=== PATIENT | female | born 1930 ===

== ENCOUNTER 2017-03-09 20:28 | Observation (INO) | payer MEDICARE, OTHER ==
[2017-03-09 20:39] VITALS: BMI 25.6
--- NOTE | 2017-03-09 21:57 | ED PDOC ---
Arrival/HPI <Drew Shukla - Last Filed: 03/10/17 00:05> - General Historian: Patient, Skilled Nursing <Birgit Vasquez - Last Filed: 03/10/17 01:32> - General Chief Complaint: Upper Extremity Problem/Injury Time Seen by Provider: 03/09/17 21:05 - History of Present Illness Narrative History of Present Illness (Text): 03/09/17 21:55 86YR old female presents today sent in from group home for left 5th finger fracture. Pt unable to explain what happened. denies trauma or injury. pt denies any complaints. pt with hx of dementia, does not know where she is. ( Birgit Vasquez) Past Medical History - Provider Review Nursing Documentation Reviewed: Yes - Travel History Have you recently traveled outside [place] w/in the past 3 mons?: No - Infectious Disease Hx of Infectious Diseases: None - Reproductive Menopause: Yes - Neurological Hx Alzheimer's Disease: Yes - Musculoskeletal/Rheumatological Hx Osteoporosis: Yes - Gastrointestinal Hx Gastroesophageal Reflux: Yes - Psychiatric Hx Depression: Yes Hx Substance Use: No Other/Comment: insomia - Surgical History Other/Comment: hernia surgery - Anesthesia Hx Anesthesia: No Hx Anesthesia Reactions: No Hx Malignant Hyperthermia: No <Birgit Vasquez - Last Filed: 03/10/17 01:32> Family/Social History - Physician Review Nursing Documentation Reviewed: Yes Family/Social History: Unknown Family HX Smoking Status: Never Smoked Hx Alcohol Use: No Hx Substance Use: No <Birgit Vasquez - Last Filed: 03/10/17 01:32> Allergies/Home Meds <Drew Shukla - Last Filed: 03/10/17 00:05> <Birgit Vasquez - Last Filed: 03/10/17 01:32> Allergies/Adverse Reactions: Allergies No Known Allergies Allergy (Verified 03/09/17 20:34) Home Medications: Home Meds Medication Instructions Recorded Confirmed Divalproex [Depakote DR] 125 mg PO DAILY 03/09/17 03/09/17 Donepezil [Aricept] 10 g PO HS 03/09/17 03/09/17 Ergocalciferol (Vitamin D2) 1 tab PO QWK 03/09/17 03/09/17 [Vitamin D2] Famotidine [Pepcid] 1 tab PO HS 03/09/17 03/09/17 Multivitamin [Daily Vitamin 1 tab PO DAILY 03/09/17 03/09/17 Formula] Peg 400/Hypromellose/Glycerin 1 drop BOTHEYES BID 03/09/17 03/09/17 [Artificial Tears Drops] traZODone [Desyrel] 50 mg PO DAILY 03/09/17 03/09/17 Review of Systems - Review of Systems Systems not reviewed;Unavailable: Dementia Respiratory: absent: Cough Gastrointestinal: absent: Abdominal Pain Genitourinary Female: absent: Dysuria, Frequency Musculoskeletal: absent: Arthralgias, Back Pain Neurological: absent: Headache <Birgit Vasquez - Last Filed: 03/10/17 01:32> Physical Exam Vital Signs Reviewed: Yes Temperature: Afebrile Blood Pressure: Hypertensive Pulse: Regular Respiratory Rate: Normal Appearance: Positive for: Well-Appearing, Non-Toxic, Comfortable Pain Distress: None Mental Status: Positive for: Alert and Oriented X 3 - Systems Exam Head: Present: Atraumatic Pupils: Present: PERRL Mouth: Present: Moist Mucous Membranes Neck: Present: Normal Range of Motion. No: MIDLINE TENDERNESS, Paraspinal Tenderness Respiratory/Chest: Present: Clear to Auscultation Cardiovascular: Present: Regular Rate and Rhythm Abdomen: No: Tenderness, Rebound, Guarding Back: Present: Normal Inspection. No: Midline Tenderness, Paraspinal Tenderness Upper Extremity: Present: NORMAL PULSES, Swelling, Neurovascularly Intact, Capillary Refill < 2s. No: Normal ROM, Tenderness (left hand; + ecchymosis and edema noted to dorsal aspect of left hand and left 5th finger; non tender. no wrist tenderness. ), Erythema, Deformity Neurological: Present: GCS=15 Skin: Present: Warm, Dry Psychiatric: Present: Alert <Birgit Vasquez - Last Filed: 03/10/17 01:32> Vital Signs Temp Pulse Resp BP Pulse Ox 03/10/17 00:57 59 L 18 166/66 H 98 03/09/17 22:36 73 18 154/65 H 99 03/09/17 20:36 98.0 F 65 18 173/63 H 99 Medical Decision Making <Drew Shukla - Last Filed: 03/10/17 00:05> <Birgit Vasquez - Last Filed: 03/10/17 01:32> ED Course and Treatment: 03/09/17 21:57 86yr old female with hx of dementia. confused. with left hand injury. unsure of how it occurred. no group home history to confirm how hand injury occurred. cbc: wnl cmp: glucose; 119 BUN; 27/ cr:0.7 trop wnl ekg; NSR at 70 bpm normal axis normal intervals no ST elevations CXR: wnl xray left 5th finger; + angulated displaced fx; pt placed into finger splint. Urinalysis pending case discussed with dr. denton; will admit observational status to med/surg for finger fracture, dehydration; will consult dr. tadeo (hand specialist) NS given IV. impression; dehydration, finger fracture observational status to med/surg with hand consult 03/10/17 01:29 (Birgit Vasquez) - Lab Interpretations Lab Results: 03/09/17 21:50 03/09/17 21:50 Lab Results 03/09/17 21:50: WBC 6.9, RBC 4.02, Hgb 12.4, Hct 37.5, MCV 93.3, MCH 30.8, MCHC 33.1, RDW 12.4, Plt Count 245, MPV 9.5, Gran % 55.4, Lymph % (Auto) 34.6, Ramsey % (Auto) 8.4 H, Eos % (Auto) 1.3 L, Baso % (Auto) 0.3, Gran # 3.84, Lymph # 2.4 , Ramsey # 0.6, Eos # 0.1, Baso # 0.02 03/09/17 21:50: Sodium 139, Potassium 4.2, Chloride 102, Carbon Dioxide 28, Anion Gap 13, BUN 27 H, Creatinine 0.7, Est GFR ( Amer) > 60, Est GFR ( Non-Af Amer) > 60, Random Glucose 119 H, Calcium 9.3, Total Bilirubin 0.4, AST 61 H, ALT 65 H, Alkaline Phosphatase 233 H, Lactate Dehydrogenase 477, Total Creatine Kinase 36, Troponin I < 0.01, Total Protein 6.6, Albumin 3.6, Globulin 3.0, Albumin/Globulin Ratio 1.2 - RAD Interpretation Radiology Orders: 03/09/17 21:06 HEAD W/O CONTRAST [CT] Stat 03/09/17 21:13 HAND LEFT 3 VIEWS ROUTINE [RAD] Stat 03/09/17 21:54 CHEST PORTABLE [RAD] Stat - Medication Orders Current Medication Orders: Sodium Chloride (Sodium Chloride 0.9%) 500 mls @ 50 mls/hr IV .Q10H MIGUEL - PA / [employer] / Resident Statement / has reviewed & agrees with the documentation as recorded. / has examined the patient and agrees with the treatment plan. <Drew Shukla - Last Filed: 03/10/17 00:05> Disposition/Present on Arrival <Drew Shukla - Last Filed: 03/10/17 00:05> - Present on Arrival Any Indicators Present on Arrival: No History of DVT/PE: No History of Uncontrolled Diabetes: No Urinary Catheter: No History of Decub. Ulcer: No History Surgical Site Infection Following: None - Disposition Have Diagnosis and Disposition been Completed?: Yes Disposition Time: 01:31 Patient Plan: Observation <Birgit Vasquez - Last Filed: 03/10/17 01:32> - Disposition Diagnosis: Dehydration, Finger fracture Disposition: HOSPITALIZED Condition: FAIR Referrals: Lora Denton MD [Primary Care Provider] - Follow up with primary Forms: [employer] (Danish)
[2017-03-09 22:09] LABS: ALB/GLOB RATIO 1.2 (1.1-1.8); ALBUMIN 3.6 g/dL (3.0-4.8); ALT/SGPT 65 U/L (7-56); AST/SGOT 61 U/L (15-39); BLOOD UREA NITROGEN 27 mg/dL (7-21); CALCIUM 9.3 mg/dL (8.4-10.5); GFR AFRICAN-AMERICAN > 60; GFR NON-AFRICAN AMERICAN > 60
[2017-03-09 22:11] LABS: BASO # 0.02 K/mm3 (0.0-2.0); BASO % 0.3 % (0.0-3.0); EOS # 0.1 (0.0-0.7); EOS % 1.3 % (1.5-5.0); GRAN # 3.84 (1.4-6.5); GRAN % 55.4 % (50.0-68.0); HEMOGLOBIN 12.4 g/dL (12.0-16.0); LYMPH # 2.4 (1.2-3.4); LYMPH % 34.6 % (22.0-35.0); MEAN CELL VOLUME 93.3 fl (80.0-105.0); MEAN CORPUSCULAR HEMOGLOBIN 30.8 pg (25.0-35.0); MEAN CORPUSCULAR HGB CONC 33.1 g/dl (31.0-37.0); MEAN PLATELET VOLUME 9.5 fl (7.0-11.0); MONO # 0.6 (0.1-0.6); MONO % 8.4 % (1.0-6.0); PLATELET COUNT 245 10^3/uL (120.0-450.0); RBC 4.02 10^6/uL (3.5-6.1); RED CELL DISTRIBUTION WIDTH 12.4 % (11.5-14.5); WHITE BLOOD COUNT 6.9 10^3/ul (4.5-11.0)
[2017-03-09 22:29] LABS: TROPONIN I < 0.01 ng/mL
--- NOTE | 2017-03-09 23:16 | CT ---
EXAM: CT Head Without Intravenous Contrast CLINICAL HISTORY: 86 years old, female; Injury or trauma; Fall; Initial encounter; Fracture, stress; Injury details: Fracture in hand not in head. Patient confused; Additional info: Fall, TECHNIQUE: Axial computed tomography images of the head/brain without intravenous contrast. All CT scans at this facility use one or more dose reduction techniques, viz.: automated exposure control; ma/kV adjustment per patient size (including targeted exams where dose is matched to indication; i.e. head); or iterative reconstruction technique. COMPARISON: No relevant prior studies available. FINDINGS: Brain: No acute intracranial hemorrhage. Age-appropriate periventricular white matter disease. No edema. Ventricles: Age-appropriate ventriculomegaly. Bones: No acute displaced fracture. Sinuses: Unremarkable as visualized. No acute sinusitis. Mastoid air cells: Unremarkable as visualized. No mastoid effusion. IMPRESSION: No acute intracranial hemorrhage, or suspicious mass effect.
[2017-03-10 01:01] VITALS: O2SAT 98
[2017-03-10] MEDS: Sodium Chloride 0.9% 500 ML IV SCH ×2 (01:10→04:06)
--- NOTE | 2017-03-10 07:52 | RAD ---
PROCEDURE: Left Hand Radiographs. HISTORY: fall COMPARISON: None. FINDINGS: BONES: Acute fracture proximal phalanx left 5th digit. Evidence of old, healed distal radial and ulnar styloid fractures. JOINTS: Osteoarthritic changes are diffuse and moderate. SOFT TISSUES: Normal. OTHER FINDINGS: None. IMPRESSION: Acute fracture proximal phalanx left 5th digit. No preliminary report provided by emergency department personnel.
--- NOTE | 2017-03-10 07:54 | RAD ---
HISTORY: FALL COMPARISON: No prior. FINDINGS: LUNGS: No active pulmonary disease. Interstitial lung disease uncertain acuity, significance. PLEURA: No significant pleural effusion identified, no pneumothorax apparent. CARDIOVASCULAR: No radiographic findings to suggest acute or significant cardiovascular disease. OSSEOUS STRUCTURES: No significant abnormalities. VISUALIZED UPPER ABDOMEN: Normal. OTHER FINDINGS: None. IMPRESSION: No active disease.
[2017-03-10 09:46] LABS: URINE BILIRUBIN NEGATIVE (NEGATIVE); URINE BLOOD SMALL (NEGATIVE); URINE GLUCOSE (UA) NEGATIVE (NEGATIVE); URINE LEUKOCYTE ESTERASE NEGATIVE Leu/uL (NEGATIVE); URINE NITRATE NEGATIVE (NEGATIVE); URINE PROTEIN NEGATIVE mg/dL (<30 mg/dL); URINE UROBILINOGEN 0.2 E.U./dL (<1 E.U./dL)
[2017-03-10 09:47] LABS: URINE APPEARANCE CLEAR (CLEAR); URINE COLOR LIGHT YELLOW (YELLOW)
[2017-03-10] MEDS ORDERED: Ergocalciferol 50,000 Intl Units Cap PO SCH (10:00)
[2017-03-10 10:11] LABS: URINE BACTERIA TRACE (NEG); URINE EPITHELIAL CELLS 0 - 2 /hpf (0-5); URINE WBC 0 - 2 /hpf (0-6)
[2017-03-10] MEDS: Divalproex 250 mg DR (BID formulation) PO SCH (10:38)
[2017-03-10] MEDS: Aritificial Tears (15ml) OU SCH ×2 (10:39→17:46)
[2017-03-10] MEDS: Multivitamin Therapeutic Tab PO SCH (10:39)
--- NOTE | 2017-03-10 13:18 | CARD ---
APPROVED REPORT EKG Measurement Heart [id number] <Conclusion> Normal sinus rhythm Normal ECG
[2017-03-10 16:16] VITALS: TEMP 97.6
[2017-03-11 08:32] VITALS: BP 107/49; PULSE 63; RESP 18
--- NOTE | 2017-03-11 12:21 | HP ---
The patient was seen and examined on 03/10/2017. CHIEF COMPLAINT: Hand pain. HISTORY OF PRESENT ILLNESS: Ms. Jesus Fernandez is an 86 years old female resident of [facility] who was sent to [facility] for pain in the left hand, fifth finger with a fracture. The patient has advanced dementia. She is not able to give any history, chief of complaint, history and physical, but hand looks like has discoloration. According, to nursing staff, in [place] even they do not know the cause. The patient denies any complaints. PAST MEDICAL HISTORY: Advance dementia, depression, and insomnia. FAMILY HISTORY: Father and mother noncontributory. HABITS: No smoking. No drug. No ethanol. ALLERGIES: THE PATIENT IS NOT ALLERGIC WITH ANY MEDICATION. HOME MEDICATIONS: Aricept, Depakote, vitamin D2, Pepcid, artificial tear drops, and trazodone. REVIEW OF SYSTEMS: The patient is seen and examined in her room on the bedside. No cough. No abdominal pain. No dysuria. No back pain. No headache. PHYSICAL EXAMINATION: VITAL SIGNS: Temperature 98, pulse 65, respiratory rate 18, blood pressure 173/63, and pulse oximetry 99%. HEENT: Head normocephalic and atraumatic. Eyes; PERRLA. Extraocular movements intact. Conjunctivae clear. Nose patent. Mucous membrane moist. NECK: Supple. No carotid bruit or thyromegaly. CHEST: Bilaterally symmetrical. HEART: S1 and S2 positive. LUNGS: Clear to auscultation. ABDOMEN: Soft. Bowel sounds present. No organomegaly. EXTREMITIES: Left hand had ecchymosis, edema noted on the dorsal aspect of the left hand and left fifth finger. No wrist tenderness. Normal pulses. NEUROVASCULAR: Intact. LABORATORY DATA: White blood cell is 6.9, hemoglobin 12.3, hematocrit 37.5, and platelets 245. Sodium 139, potassium 4.2, BUN 27, creatinine 0.7, and glucose 119. ASSESSMENT AND PLAN: Ms. Jesus Fernandez is an 86 years old lady with hyperglycemia looks slightly bit bright. BUN is high, came with left hand abnormal x-ray must be some fall or trauma, finger fracture, do not remember any chief complaints. We will put patient on NS. Consult called with Dr. Kee, Hand Specialist, waiting for his input. Meanwhile we are taking care of the patient. Gastrointestinal and deep vein thrombosis prophylaxis. Repeat labs. We will followup. Lora Denton MD
[2017-03-11] MEDS: Aritificial Tears (15ml) OU SCH ×2 (13:30→17:15)
[2017-03-11] MEDS: Divalproex 250 mg DR (BID formulation) PO SCH ×2 (13:30→13:36)
[2017-03-11] MEDS: Multivitamin Therapeutic Tab PO SCH (17:16)
--- NOTE | 2017-03-12 01:58 | CON ---
DATE: 03/11/2017 INPATIENT CONSULTATION REASON FOR CONSULT: Left fifth finger fracture. HISTORY OF PRESENT ILLNESS: Consult is as follows. This is a 86-year-old female with some baseline dementia who was admitted for dehydration and a finger fracture. History is limited due to patient's mental status. She slipped out of her rocking chair, fell on her left side and was complaining of left hand pain. She now presents for further evaluation and treatment. There was no history of a documented fall. PHYSICAL EXAMINATION: GENERAL: She is ambulating with a walker without any difficulty. She is awake and responsive. EXTREMITIES: Evaluation of the left hand shows that she has some obvious swelling and ecchymosis about the left fifth finger. The skin is otherwise intact. There are no lacerations. She has point tenderness over the left fifth proximal phalanx. She is nontender over the remaining portion of the hand and is moving her fingers. No significant gross malalignment is appreciated. She has good cap refill in all her fingers. Evaluation of the left hip shows that she has no pain with passive or active range of motion of the hip. There is no swelling or ecchymosis about the left thigh. Her thigh is otherwise soft and nontender. Grossly, she is neurovascularly intact. LABORATORY DATA: X-rays of the left hand show a left fifth proximal phalanx fracture with some displacement. Remaining portion of the hand appears to be intact. IMPRESSION: Left fifth proximal phalanx fracture. PLAN: At this point, a finger splint was applied. Recommendations will be to continue use the finger sling for the next 2-3 weeks. Patient to follow up in office for a repeat x-ray. Familia Torrez MD
== END 2017-03-11 17:58 ==
LOC: ED 20:28 → ERH 03-10 01:38 → 5RSO 03-10 03:28
PROVIDERS: ADMIT Internal Medicine; ATTEND Internal Medicine
DX: S62.617A Displaced fracture of proximal phalanx of left little finger, initial encounter for closed fracture (principal); E86.0 Dehydration; R73.9 Hyperglycemia, unspecified; G30.9 Alzheimer's disease, unspecified; F02.80 Dementia in other diseases classified elsewhere, unspecified severity, without behavioral disturbance, psychotic disturbance, mood disturbance, and anxiety; F32.9 Major depressive disorder, single episode, unspecified; G47.00 Insomnia, unspecified; W07.XXXA Fall from chair, initial encounter; Y92.129 Unspecified place in nursing home as the place of occurrence of the external cause
CPT/HCPCS: 70450; 71010; 73130; 80053; 81001; 82550; 83615; 84484; 85025; 93005; 99285; G0378; J7040

== ENCOUNTER 2017-03-21 03:10 | Inpatient (IN) | payer MEDICARE, OTHER ==
[2017-03-21 03:14] VITALS: BMI 23.0
[2017-03-21] MEDS ORDERED: TDAP Vaccine 0.5 mL Syr IM ONE (03:16)
--- NOTE | 2017-03-21 03:18 | ED PDOC ---
Arrival/HPI - General Chief Complaint: Trauma Time Seen by Provider: 03/21/17 03:13 Historian: Patient, [facility] EM Caveat: Dementia - History of Present Illness Narrative History of Present Illness (Text): 03/21/17 03:22 86 year old female, whose past medical history includes dementia, was sent in by the [facility] for an unwitnessed fall. Patient has a wrist deformity and right head swelling. Patient is unable to explain what happened. HPI and ROS limited due to patient's current state and dementia. Time/Duration: Prior to Arrival Symptom Onset: Sudden Symptom Course: Unchanged Activities at Onset: Light Context: Home ([facility]) Past Medical History - Provider Review Nursing Documentation Reviewed: Yes - Infectious Disease Hx of Infectious Diseases: None - Cardiac Hx Cardiac Disorders: No - Pulmonary Hx Respiratory Disorders: No - Neurological Hx Neurological Disorder: Yes Hx Alzheimer's Disease: Yes - HEENT Hx HEENT Disorder: No - Renal Hx Renal Disorder: No - Endocrine/Metabolic Hx Endocrine Disorders: No - Hematological/Oncological Hx Blood Disorders: No - Integumentary Hx Dermatological Disorder: No - Musculoskeletal/Rheumatological Hx Musculoskeletal Disorders: Yes Hx Falls: Yes - Gastrointestinal Hx Gastrointestinal Disorders: Yes Hx Gastroesophageal Reflux: Yes - Genitourinary/Gynecological Hx Genitourinary Disorders: No - Psychiatric Hx Psychophysiologic Disorder: Yes Hx Depression: Yes Hx Substance Use: No Other/Comment: insomia - Surgical History Hx Inguinal Hernia Repair: Yes Other/Comment: hernia surgery - Anesthesia Hx Anesthesia: No Hx Anesthesia Reactions: No Hx Malignant Hyperthermia: No Family/Social History - Physician Review Nursing Documentation Reviewed: Yes Family/Social History: No Known Family HX Smoking Status: Never Smoked Hx Alcohol Use: No Hx Substance Use: No Allergies/Home Meds Allergies/Adverse Reactions: Allergies No Known Allergies Allergy (Verified 03/09/17 20:34) Home Medications: Home Meds Medication Instructions Recorded Confirmed Divalproex [Depakote DR] 125 mg PO DAILY 03/09/17 03/09/17 Donepezil [Aricept] 10 g PO HS 03/09/17 03/09/17 Ergocalciferol (Vitamin D2) 1 tab PO QWK 03/09/17 03/09/17 [Vitamin D2] Famotidine [Pepcid] 1 tab PO HS 08/13/17 08/13/17 Multivitamin [Daily Vitamin 1 tab PO DAILY 03/09/17 03/09/17 Formula] Peg 400/Hypromellose/Glycerin 1 drop BOTHEYES BID 03/09/17 03/09/17 [Artificial Tears Drops] traZODone [Desyrel] 50 mg PO DAILY 03/09/17 03/09/17 Review of Systems - Physician Review All systems were reviewed & negative as marked: Yes - Review of Systems Systems not reviewed;Unavailable: Dementia Physical Exam Vital Signs Reviewed: Yes Vital Signs Temp Pulse Resp BP Pulse Ox 03/21/17 03:17 97.8 F 63 17 175/80 H 99 03/21/17 03:16 98.8 F 67 17 175/80 H 99 Temperature: Afebrile Blood Pressure: Hypertensive Pulse: Regular Respiratory Rate: Normal Appearance: Positive for: Well-Appearing, Non-Toxic, Comfortable Pain Distress: None - Systems Exam Head: Present: Other (Hematoma on the right forehead) Pupils: Present: PERRL Extroacular Muscles: Present: EOMI Conjunctiva: Present: Normal Mouth: Present: Moist Mucous Membranes Neck: Present: Normal Range of Motion. No: MIDLINE TENDERNESS, Paraspinal Tenderness Respiratory/Chest: Present: Clear to Auscultation, Good Air Exchange. No: Respiratory Distress, Accessory Muscle Use Abdomen: Present: Normal Bowel Sounds. No: Tenderness, Distention, Peritoneal Signs Back: Present: Normal Inspection. No: Midline Tenderness, Paraspinal Tenderness Upper Extremity: Present: Normal Inspection, NORMAL PULSES, Neurovascularly Intact, Deformity (right wrist deformity). No: Cyanosis, Edema Lower Extremity: Present: Normal Inspection. No: Edema Neurological: Present: GCS=15, CN II-XII Intact, Speech Normal Skin: Present: Warm, Dry, Normal Color. No: Rashes Psychiatric: Present: Alert Medical Decision Making ED Course and Treatment: 03/21/17 03:21 Impression: 86 year old female present by EMS [facility]. Patient past medical history includes dementia. Plan: -- CT Cervical Spine -- CT Head -- Labs -- Chest X-ray Two Views -- Right Wrist X-Ray -- Right Elbow X-Ray -- Right Forearm X-Ray -- EKG -- Boostrix -- Reassess and disposition Prior Visits: Notes and results from previous visits were reviewed. On 03/09/2017 patient came in for left 5th finger fracture. Progress Notes: 03/21/17 03:59 CXR Impression: As read by me, shows no acute processes. Right Wrist X-Ray Impression: As read by me, shows distal radius and ulnar fractures. 03/21/17 04:08 EKG shows NSR at 61 bpm with non-specific st changes. EXAM: CT Head Without Intravenous Contrast 03/21/2017 4:27 AM Dictated and Authenticated by: Shefali Jarrett MD FINDINGS: Subcutaneous soft tissue swelling/subcutaneous hematoma right frontal region. There is atrophy. There is chronic small vessel ischemic disease. There is no hemorrhage or edema. Trace fluid right maxillary sinus similar to prior. The osseous structures are normal. IMPRESSION: No acute intracranial findings. EXAM: CT Cervical Spine Without Intravenous Contrast 03/21/2017 4:32 AM Dictated and Authenticated by: Shefali Jarrett MD FINDINGS: There are degenerative changes in the osseous structures. The vertebral bodies and facet joints are well aligned. The vertebral body height is well maintained. No subluxation. No fractures. The soft tissues appear grossly normal. IMPRESSION: No acute injury. 03/21/17 04:[address] c-spine negative. Trop x 1 negative. Patient placed in splint and ortho consult placed. Dr. Bertin montes and admitted to [facility] for fall vs syncope with fractures requiring ortho consult. - Lab Interpretations Lab Results: 03/21/17 04:00 03/21/17 04:00 Lab Results 03/21/17 04:00: PT 10.6, INR 0.98, APTT 30.2 03/21/17 04:00: Sodium 140, Potassium 4.0, Chloride 104, Carbon Dioxide 25, Anion Gap 15, BUN 24 H, Creatinine 0.7, Est GFR ( Amer) > 60, Est GFR ( Non-Af Amer) > 60, Random Glucose 134 H, Calcium 9.6, Total Bilirubin 0.2, AST 60 H, ALT 54, Alkaline Phosphatase 222 H, Total Creatine Kinase 35, Troponin I < 0.01, Total Protein 7.1, Albumin 3.8, Globulin 3.3, Albumin/Globulin Ratio 1.2 03/21/17 04:00: WBC 8.5 D, RBC 3.73, Hgb 11.6 L, Hct 34.8 L, MCV 93.3, MCH 31.1 , MCHC 33.3, RDW 12.5, Plt Count 251, MPV 9.2, Gran % 79.0 H, Lymph % (Auto) 12.2 L, Heard % (Auto) 8.2 H, Eos % (Auto) 0.4 L, Baso % (Auto) 0.2, Gran # 6.71 H, Lymph # 1.0 L, Heard # 0.7 H, Eos # 0.0, Baso # 0.02 I have reviewed the lab results: Yes - RAD Interpretation Radiology Orders: 03/21/17 03:14 CERVICAL SPINE W/O CONTRAST [CT] Stat HEAD W/O CONTRAST [CT] Stat WRIST, RIGHT 3 VIEWS [RAD] Stat 03/21/17 03:16 CHEST TWO VIEWS (PA/LAT) [RAD] Stat 03/21/17 03:55 ELBOW RIGHT 3 VIEWS ROUTINE [RAD] Stat FOREARM RIGHT [RAD] Stat - EKG Interpretation Interpreted by ED Physician: Yes Type: 12 lead EKG - Medication Orders Current Medication Orders: Discontinued Medications Acetaminophen (Tylenol 325mg Tab) 650 mg PO STAT STA Stop: 03/21/17 04:10 Tetanus/Reduced Diphtheria/Acell Pertussis (Boostrix Vaccine Inj) 0.5 ml IM .ONCE ONE Stop: 03/21/17 03:17 - Scribe Statement The provider has reviewed the documentation as recorded by the Scribjonelle Govea All medical record entries made by the Scribe were at my direction and personally dictated by me. I have reviewed the chart and agree that the record accurately reflects my personal performance of the history, physical exam, medical decision making, and the department course for this patient. I have also personally directed, reviewed, and agree with the discharge instructions and disposition. Disposition/Present on Arrival - Present on Arrival Any Indicators Present on Arrival: No History of DVT/PE: No History of Uncontrolled Diabetes: No Urinary Catheter: No History Surgical Site Infection Following: None - Disposition Have Diagnosis and Disposition been Completed?: Yes Diagnosis: Ulnar fracture, Radius fracture, Fall, Head trauma Disposition: HOSPITALIZED Disposition Time: 05:14 Condition: FAIR
[2017-03-21 04:13] LABS: BASO # 0.02 K/mm3 (0.0-2.0); BASO % 0.2 % (0.0-3.0); EOS % 0.4 % (1.5-5.0); GRAN # 6.71 (1.4-6.5); HEMATOCRIT 34.8 % (36.0-48.0); LYMPH % 12.2 % (22.0-35.0); MEAN CELL VOLUME 93.3 fl (80.0-105.0); MEAN CORPUSCULAR HEMOGLOBIN 31.1 pg (25.0-35.0); MEAN CORPUSCULAR HGB CONC 33.3 g/dl (31.0-37.0); MEAN PLATELET VOLUME 9.2 fl (7.0-11.0); MONO # 0.7 (0.1-0.6); MONO % 8.2 % (1.0-6.0); RED CELL DISTRIBUTION WIDTH 12.5 % (11.5-14.5)
[2017-03-21 04:17] LABS: WHITE BLOOD COUNT 8.5 10^3/ul (4.5-11.0)
[2017-03-21 04:28] LABS: ALB/GLOB RATIO 1.2 (1.1-1.8); ALKALINE PHOSPHATASE 222 U/L (38-133); ALT/SGPT 54 U/L (7-56); AST/SGOT 60 U/L (15-39); BILIRUBIN,TOTAL 0.2 mg/dL (0.2-1.3); BLOOD UREA NITROGEN 24 mg/dL (7-21); CALCIUM 9.6 mg/dL (8.4-10.5); CARBON DIOXIDE 25 mmol/L (21-33); CHLORIDE 104 mmol/L (98-107); GFR AFRICAN-AMERICAN > 60; GLUCOSE,RANDOM 134 mg/dL (70-110); INR 0.98 (0.93-1.08); PARTIAL THROMBOPLASTIN TIME 30.2 Seconds (23.7-30.8); SODIUM 140 mmol/L (132-148); TOTAL PROTEIN 7.1 g/dL (5.8-8.3)
--- NOTE | 2017-03-21 04:28 | CT ---
EXAM: CT Head Without Intravenous Contrast EXAM DATE/TIME: 03/21/2017 3:14 AM CLINICAL HISTORY: 86 years old, female; Injury or trauma; Fall; Initial encounter; Blunt trauma (contusions or hematomas); Consciousness not specified TECHNIQUE: Axial computed tomography images of the head/brain without intravenous contrast. All CT scans at this facility use one or more dose reduction techniques, viz.: automated exposure control; ma/kV adjustment per patient size (including targeted exams where dose is matched to indication; i.e. head); or iterative reconstruction technique. COMPARISON: CT - HEAD W/O CONTRAST 03/09/2017 10:47:25 PM FINDINGS: Subcutaneous soft tissue swelling/subcutaneous hematoma right frontal region. There is atrophy. There is chronic small vessel ischemic disease. There is no hemorrhage or edema. Trace fluid right maxillary sinus similar to prior. The osseous structures are normal. IMPRESSION: No acute intracranial findings.
--- NOTE | 2017-03-21 04:32 | CT ---
EXAM: CT Cervical Spine Without Intravenous Contrast EXAM DATE/TIME: 03/21/2017 3:14 AM CLINICAL HISTORY: 86 years old, female; Injury or trauma; Fall; Initial encounter; Blunt trauma TECHNIQUE: Axial computed tomography images of the cervical spine without intravenous contrast. All CT scans at this facility use one or more dose reduction techniques, viz.: automated exposure control; ma/kV adjustment per patient size (including targeted exams where dose is matched to indication; i.e. head); or iterative reconstruction technique. Coronal and sagittal reformatted images were created and reviewed. COMPARISON: No relevant prior studies available. FINDINGS: There are degenerative changes in the osseous structures. The vertebral bodies and facet joints are well aligned. The vertebral body height is well maintained. No subluxation. No fractures. The soft tissues appear grossly normal. IMPRESSION: No acute injury.
[2017-03-21 04:49] LABS: TROPONIN I < 0.01 ng/mL
[2017-03-21 05:43] LABS: URINE BILIRUBIN NEGATIVE (NEGATIVE); URINE BLOOD SMALL (NEGATIVE); URINE GLUCOSE (UA) NEGATIVE (NEGATIVE); URINE KETONE NEGATIVE (NEGATIVE); URINE LEUKOCYTE ESTERASE NEGATIVE Leu/uL (NEGATIVE); URINE PROTEIN NEGATIVE mg/dL (<30 mg/dL); URINE UROBILINOGEN 0.2 E.U./dL (<1 E.U./dL)
[2017-03-21 05:50] LABS: URINE APPEARANCE CLEAR (CLEAR); URINE COLOR YELLOW (YELLOW)
[2017-03-21 06:07] LABS: URINE EPITHELIAL CELLS 0 - 2 /hpf (0-5); URINE RBC 0 - 2 /hpf (0-2); URINE WBC 0 - 2 /hpf (0-6)
--- NOTE | 2017-03-21 07:51 | RAD ---
PROCEDURE: Radiographs of the right elbow. HISTORY: fall COMPARISON: No prior. FINDINGS: BONES: Normal. No fracture. JOINTS: Normal. No osteoarthritis. SOFT TISSUES: Normal. JOINT EFFUSION: None. OTHER FINDINGS: None. IMPRESSION: Unremarkable radiographs of the right elbow.
--- NOTE | 2017-03-21 07:52 | RAD ---
PROCEDURE: Radiographs of the Right Forearm HISTORY: fall COMPARISON: None available. TECHNIQUE: Frontal and lateral views obtained. FINDINGS: BONES: There is a transverse angulated fracture through the distal radius. The proximal forearm is unremarkable JOINT SPACES: Unremarkable. OTHER FINDINGS: None. IMPRESSION: There is a transverse angulated fracture through the distal radius. The proximal forearm is unremarkable
--- NOTE | 2017-03-21 07:55 | RAD ---
PROCEDURE: Right Wrist Radiographs. HISTORY: R wrist deformity COMPARISON: None. FINDINGS: BONES: There is a transverse fracture of the distal radius with dorsal angulation. JOINTS: Normal. No dislocation. SOFT TISSUES: Normal. OTHER FINDINGS: None. IMPRESSION: There is a transverse fracture of the distal radius with dorsal angulation.
--- NOTE | 2017-03-21 07:57 | RAD ---
HISTORY: fall COMPARISON: No prior. TECHNIQUE: Chest PA and lateral FINDINGS: LUNGS: No active pulmonary disease. PLEURA: No significant pleural effusion identified. No pneumothorax apparent. CARDIOVASCULAR: Normal. OSSEOUS STRUCTURES: No significant abnormalities. VISUALIZED UPPER ABDOMEN: Normal. OTHER FINDINGS: None. IMPRESSION: No active disease.
[2017-03-21] MEDS ORDERED: Ergocalciferol 50,000 Intl Units Cap PO SCH (10:00)
[2017-03-21] MEDS: Multivitamin Therapeutic Tab PO SCH (11:15)
[2017-03-21] MEDS: Divalproex 125 mg EC Sprinkle Cap PO SCH (11:17)
[2017-03-21] MEDS: Lubricant Eye Drops UD OU SCH ×2 (11:18→17:33)
[2017-03-21] MEDS ORDERED: Pneumococcal 23-Valent Vaccine IM ONE (13:25)
--- NOTE | 2017-03-21 15:29 | CARD ---
APPROVED REPORT EKG Measurement Heart [id number] <Conclusion> Normal sinus rhythm Nonspecific ST abnormality Abnormal ECG
[2017-03-21 17:02] VITALS: BP 132/51; PULSE 61; RESP 18; TEMP 98.1; O2SAT 99
--- NOTE | 2017-03-22 03:22 | HP ---
CHIEF COMPLAINT: History of fall. HISTORY OF PRESENT ILLNESS: The patient is an 86-year-old lady with severe dementia, was sent from [facility] for unwitnessed fall. The patient has wrist deformity and right hand swelling. The patient is unable to explain what happened. Actually, , I was sitting in the [facility] on her floor. She was restless, walking around and most of the time misses her getting her one-to-one. She has advanced dementia and not following commands. Sometimes, she is trying to escape through the elevator, but nurses are keeping an eye and facility is like locked facility. The patient is not able to give history. PAST MEDICAL HISTORY: Dementia, falls, GERD, dyspepsia, depression, insomnia. FAMILY HISTORY: Father and mother noncontributory. HABITS: Never smoked. No drug, no ethanol. ALLERGIES: THE PATIENT IS NOT ALLERGIC TO ANY MEDICATIONS. HOME MEDICATIONS: Depakote, Aricept, vitamin D, Pepcid, artificial tears, trazodone. REVIEW OF SYSTEMS: The patient is seen and examined at the bedside, sleepy, arousable, is not able to give any review of system. No fever, no chills. PHYSICAL EXAMINATION: VITAL SIGNS: Temperature 98.1, pulse 61, blood pressure 132/55, and respiratory rate is 18. HEENT: Head normocephalic and atraumatic. Eyes, PERRLA. Extraocular movements intact. Conjunctivae clear. Nose patent. Mucous membrane moist. NECK: Supple. No carotid bruit, no JVD or thyromegaly. CHEST: Bilaterally symmetrical. HEART: S1 and S2 positive. LUNGS: Clear to auscultation. ABDOMEN: Soft. Bowel sounds present. No organomegaly. EXTREMITIES: No edema. No cyanosis. NEUROLOGIC: The patient is sleepy, arousable. LABORATORY DATA: White blood cell 8.5, hemoglobin 11.6, hematocrit 34.8, and platelets 251. Sodium 140, potassium 4.0, BUN 24, creatinine 0.7, glucose 134, AST 60. ASSESSMENT AND PLAN: The patient is an 86-year-old lady with increased BUN, hyperglycemia, abnormal liver function test, anemia, has history of fall in [facility], unwitnessed, came to [facility] Emergency Room. There is a transverse angulation fracture through the distal radius. The remainder of the forearm is unremarkable of the right arm. X-ray of the elbow is done also. Unremarkable radiograph of the right elbow. Chest x-ray reviewed by me. Wrist x-ray is done, reveals a transverse fracture of the distal radius with the dorsal angulation. CAT scan of the head and cervical spine done. No acute intracranial findings. Cervical spine shows no acute injury. Consult called with Dr. Torrez, orthopedic, he saw the patient, suggesting putting plaster of nixon, waiting for his official documentation. We will follow up. Lora Denton MD
[2017-03-22] MEDS: Multivitamin Therapeutic Tab PO SCH (09:18)
[2017-03-22] MEDS: Divalproex 125 mg EC Sprinkle Cap PO SCH (09:20)
[2017-03-22] MEDS: Lubricant Eye Drops UD OU SCH (09:21)
--- NOTE | 2017-03-24 00:40 | DS ---
CHIEF COMPLAINT: Fall, pain in the wrist. HISTORY OF PRESENT ILLNESS: Ms. Jesus Fernandez is an 86-year-old lady with severe dementia, was sent from [facility] for unwitnessed fall. The patient has wrist deformity and right hand swelling. The patient is unable to explain what happened. X-ray done shows right wrist fracture. We called consult with Dr. Torrez, he wants to put the plaster of nixon, but he can do as an outpatient because weekend is coming. The patient is comfortable, not much pain, we decided the patient back to [facility] and made appointment with Dr. Torrez as outpatient. PAST MEDICAL HISTORY: Dementia, falls, GERD, dyspepsia, depression, insomnia. FAMILY HISTORY: Father and mother noncontributory. HABITS: Never smoked. No drugs, no ethanol. ALLERGIES: THE PATIENT IS NOT ALLERGIC TO ANY MEDICATIONS. HOME MEDICATIONS: Depakote, Aricept, vitamin D, and Pepcid. REVIEW OF SYSTEMS: The patient is seen and examined at the bedside, looking comfortable. No nausea, vomiting, diarrhea, hematuria, hematochezia. No swelling of the legs. No chest pain, no palpitations. No headache or dizziness. No fevers, no chills. PHYSICAL EXAMINATION: VITAL SIGNS: Temperature 98.1, pulse 51, blood pressure 138/51, respiratory rate is 18. HEENT: Head normocephalic and atraumatic. Eyes, PERRLA. Extraocular movements intact. Conjunctivae clear. Nose patent. Mucous membrane moist. NECK: Supple. No carotid bruit, no JVD or thyromegaly. CHEST: Bilaterally symmetrical. HEART: S1 and S2 positive. LUNGS: Clear to auscultation. ABDOMEN: Soft. Bowel sounds present. No organomegaly. EXTREMITIES: No edema. No cyanosis. NEUROLOGIC: The patient is awake and alert. Moving all four extremities. No focal deficits. MEDICATIONS: Aricept, Depakote, trazodone, Pepcid, multivitamins. LABORATORY DATA: White blood cells 8.5, hemoglobin 11.6, hematocrit 34.8, platelets 251. Sodium 140, potassium 4.0, BUN 24, creatinine 0.7. Random glucose 134, AST 60, ALT 54, alkaline phosphatase 222. ASSESSMENT AND PLAN: Ms. Jesus Fernandez is an 83-year-old lady with anemia, increased BUN, hyperglycemia, abnormal liver function test, hematuria, history of fall in [place], unwitnessed, has transverse angulation fracture to the distal radius. CAT scan of the head done, reviewed by me; had CAT scan of the cervical spine done, reviewed by me. Consult called with Dr. Torrez, will follow up as outpatient, was sent back to rehab. We will followup there. Lora Denton MD
== END 2017-03-22 15:12 | DRG 563 ==
LOC: ED 03:10 → ERH 04:36 → 5RNO 09:15
PROVIDERS: ADMIT Internal Medicine; ATTEND Internal Medicine
DX: S52.591A Other fractures of lower end of right radius, initial encounter for closed fracture (principal); S00.83XA Contusion of other part of head, initial encounter; G30.9 Alzheimer's disease, unspecified; R31.9 Hematuria, unspecified; F02.80 Dementia in other diseases classified elsewhere, unspecified severity, without behavioral disturbance, psychotic disturbance, mood disturbance, and anxiety; F32.9 Major depressive disorder, single episode, unspecified; K21.9 Gastro-esophageal reflux disease without esophagitis; D64.9 Anemia, unspecified; R73.9 Hyperglycemia, unspecified; W19.XXXA Unspecified fall, initial encounter; Y93.01 Activity, walking, marching and hiking; Y92.129 Unspecified place in nursing home as the place of occurrence of the external cause

== ENCOUNTER 2017-04-22 20:09 | Emergency (ER) | payer MEDICARE, MEDICAID ==
[2017-04-22 20:09] VITALS: BMI 23.0
[2017-04-22 20:26] VITALS: BP 147/50; PULSE 65; RESP 18; O2SAT 99
[2017-04-22 20:44] VITALS: TEMP 97.7
[2017-04-22 21:36] LABS: BASO # 0.01 K/mm3 (0.0-2.0); BASO % 0.2 % (0.0-3.0); EOS % 0.2 % (1.5-5.0); GRAN # 4.39 (1.4-6.5); GRAN % 75.9 % (50.0-68.0); HEMATOCRIT 37.2 % (36.0-48.0); LYMPH # 0.9 (1.2-3.4); LYMPH % 14.9 % (22.0-35.0); MEAN CELL VOLUME 92.5 fl (80.0-105.0); MEAN CORPUSCULAR HEMOGLOBIN 30.8 pg (25.0-35.0); MEAN CORPUSCULAR HGB CONC 33.3 g/dl (31.0-37.0); MEAN PLATELET VOLUME 9.3 fl (7.0-11.0); MONO # 0.5 (0.1-0.6); MONO % 8.8 % (1.0-6.0); RED CELL DISTRIBUTION WIDTH 12.4 % (11.5-14.5); WHITE BLOOD COUNT 5.8 10^3/ul (4.5-11.0)
[2017-04-22 21:38] LABS: ALB/GLOB RATIO 1.1 (1.1-1.8); ALKALINE PHOSPHATASE 187 U/L (38-126); ALT/SGPT 31 U/L (7-56); AST/SGOT 43 U/L (14-36); BILIRUBIN,TOTAL 0.6 mg/dL (0.2-1.3); BLOOD UREA NITROGEN 23 mg/dL (7-21); CALCIUM 9.3 mg/dL (8.4-10.5); CARBON DIOXIDE 25 mmol/L (21-33); CHLORIDE 104 mmol/L (98-107); GFR AFRICAN-AMERICAN > 60; GLUCOSE,RANDOM 132 mg/dL (70-110); SODIUM 139 mmol/L (132-148); TOTAL PROTEIN 7.1 g/dL (5.8-8.3)
[2017-04-22 21:51] LABS: TROPONIN I < 0.01 ng/mL
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
--- NOTE | 2017-04-23 11:36 | CARD ---
APPROVED REPORT EKG Measurement Heart [id number] <Conclusion> Normal sinus rhythm Normal ECG
== END 2017-04-23 03:08 ==
LOC: ED 20:09
DX: S50.01XA Contusion of right elbow, initial encounter (principal); W19.XXXA Unspecified fall, initial encounter; Y93.9 Activity, unspecified; Y92.129 Unspecified place in nursing home as the place of occurrence of the external cause; G30.9 Alzheimer's disease, unspecified; F02.80 Dementia in other diseases classified elsewhere, unspecified severity, without behavioral disturbance, psychotic disturbance, mood disturbance, and anxiety
CPT/HCPCS: 80053; 84484; 85025; 93005; 96372; 99284; J2060

== ENCOUNTER 2017-06-18 15:31 | Emergency (ER) | payer MEDICARE, MEDICAID ==
[2017-06-18 15:49] VITALS: RESP 18; TEMP 97.6; O2SAT 100; BMI 26.2
--- NOTE | 2017-06-18 16:03 | ED PDOC ---
Arrival/HPI - General Historian: Patient <Letitia Del Toro PA-C - Last Filed: 06/18/17 17:28> <Marco Jacinto - Last Filed: 06/19/17 00:01> - General Chief Complaint: Trauma Time Seen by Provider: 06/18/17 15:53 - History of Present Illness Narrative History of Present Illness (Text): 06/18/17 16:07 86 yo F with pmh of unsteady gait, depression and Alzheimer, presents to the emergency room after she was ambulating at her [facility] and she lost her balance and fell hitting the left side of her forehead. Patient's fall was observed by all the nursing staff. Patient's NH was called by [facility], spoke to head director of community education Sasha Meléndez who states that the patient was talking to another resident, and as she was starting to back up and walk away is when she lost her balance and fell. As per Ms Meléndez, the patient is normally confused and has unsteady gait as her baseline. She has also been acting her usual self, has not had any changes in her behavior, she is eating well, she is not irritable, has not had any cough, fever, V/D, and she reports that there has been no changes to the patient in anyway that led to the accident. Otherwise: (-) loss of consciousness, (-) chest pain, (-) SOB, (-) abdominal pain, (-) severe headache , (-) other injury, (-) neck pain, (-) subjective neurologic deficit, (-) anticoagulants. Has history of prior significant head injury. PMD Bertin (Letitia Del Toro PA-C) Past Medical History - Provider Review Nursing Documentation Reviewed: Yes - Infectious Disease Hx of Infectious Diseases: None - Cardiac Hx Cardiac Disorders: No - Pulmonary Hx Respiratory Disorders: No - Neurological Hx Neurological Disorder: Yes Hx Alzheimer's Disease: Yes - HEENT Hx HEENT Disorder: Yes (dry eyes) - Renal Hx Renal Disorder: No - Endocrine/Metabolic Hx Endocrine Disorders: No - Hematological/Oncological Hx Blood Disorders: No - Integumentary Other/Comment: slightly red buttocks, bruise right forehead, small abrasion nose , swelling right hand and wrist with soft cast wrapped with tommie wrap, fading old bruises b/l knees, dry skin hard thick toenails both feet - Musculoskeletal/Rheumatological Hx Falls: Yes - Gastrointestinal Hx Gastrointestinal Disorders: Yes Hx Gastroesophageal Reflux: Yes - Genitourinary/Gynecological Hx Genitourinary Disorders: No - Psychiatric Hx Psychophysiologic Disorder: Yes Hx Depression: Yes Hx Substance Use: No Other/Comment: insomia - Surgical History Other/Comment: hernia surgery - Anesthesia Hx Anesthesia: No Hx Anesthesia Reactions: No Hx Malignant Hyperthermia: No <Letitia Del Toro PA-C - Last Filed: 06/18/17 17:28> Family/Social History - Physician Review Nursing Documentation Reviewed: Yes Family/Social History: Unknown Family HX Smoking Status: Unknown If Ever Smoked Hx Alcohol Use: No Hx Substance Use: No <Letitia Del Toro PA-C - Last Filed: 06/18/17 17:28> Allergies/Home Meds <Letitia Del Toro PA-C - Last Filed: 06/18/17 17:28> <Marco Jacinto - Last Filed: 06/19/17 00:01> Allergies/Adverse Reactions: Allergies No Known Allergies Allergy (Verified 06/18/17 15:43) Home Medications: Home Meds Medication Instructions Recorded Confirmed Divalproex [Depakote DR] 125 mg PO DAILY 03/09/17 06/18/17 Donepezil [Aricept] 10 g PO HS 03/09/17 06/18/17 Famotidine [Pepcid] 1 tab PO HS 03/09/17 06/18/17 Multivitamin [Daily Vitamin 1 tab PO DAILY 03/09/17 06/18/17 Formula] traZODone [Desyrel] 25 mg PO HS 03/09/17 06/18/17 Acetaminophen [Tylenol 325mg tab] 650 mg PO Q4 PRN 06/18/17 06/18/17 Acetaminophen [Tylenol 325mg tab] 650 mg PO Q4 PRN 06/18/17 06/18/17 Cholecalciferol [Vitamin D] 5,000 iu PO QWK 06/18/17 06/18/17 Cyproheptadine [Cyproheptadine 4 mg PO BID 06/18/17 06/18/17 Hydrochloride] Magnesium Hydroxide [Milk Of 30 ml PO DAILY PRN 06/18/17 06/18/17 Magnesia] Review of Systems - Review of Systems Constitutional: Normal. absent: Fatigue, Weight Change, Fevers Respiratory: Normal. absent: SOB, Cough, Sputum, Wheezing Cardiovascular: Normal. absent: Chest Pain, Palpitations, Edema Gastrointestinal: Normal. absent: Abdominal Pain, Constipation, Diarrhea, Vomiting Musculoskeletal: Normal. absent: Arthralgias, Back Pain, Neck Pain Skin: Normal. absent: Rash, Pruritis, Skin Lesions Neurological: Normal, Headache, Other (h/o unsteady gait, which is normal for the patient ). absent: Dizziness, Focal Weakness <Letitia Del Toro PA-C - Last Filed: 06/18/17 17:28> Physical Exam <Letitia Del Toro PA-C - Last Filed: 06/18/17 17:28> <Marco Jacinto - Last Filed: 06/19/17 00:01> - Physical Exam Narrative Physical Exam (Text): 06/18/17 16:04 GENERAL APPEARANCE: Patient is awake, alert, oriented x 1 - to self, in no acute distress. SKIN: Warm, dry; (-) cyanosis. HEAD: (-) swelling and tenderness, with no palpable bony defect. EYES: (-) conjunctival pallor, (-) scleral icterus, (-) nystagmus. ENMT: Mucous membranes moist. (-) Hewitt's sign. TMs: (-) blood. Nose: (- ) tenderness, (-) rhinorrhea. No oral trauma. Pharynx clear. Airway patent: (-) stridor. Full ROM of mandible without pain. NECK: (-) tenderness, (-) stiffness, (-) lymphadenopathy. CHEST AND RESPIRATORY: (-) chest wall tenderness. Lungs: (-) rales, (-) rhonchi, (-) wheezes; breath sounds equal bilaterally. HEART AND CARDIOVASCULAR: (-) irregularity; (-) murmur, (-) gallop. ABDOMEN AND GI: Soft; (-) tenderness. BACK: (-) tenderness. EXTREMITIES: (-) deformity, (-) tenderness, (-) limitation of motion NEURO AND PSYCH: GCS=15. Mental status as above. receptionist: Pupils equal & reactive . EOMI. (-) facial asymmetry. Tongue and uvula midline. Strength 5/5 in all extremities. No gross sensory deficits. DTRs symmetric. (Letitia Del Toro PA-C) Vital Signs Temp Pulse Resp BP Pulse Ox 06/18/17 19:42 70 18 157/73 H 100 06/18/17 15:43 97.6 F 76 18 168/77 H 100 Medical Decision Making <Letitia Del Toro PA-C - Last Filed: 06/18/17 17:28> <Marco Jacinto - Last Filed: 06/19/17 00:01> ED Course and Treatment: 06/18/17 16:05 86 yo F with pmh of unsteady gait, depression and Alzheimer, presents to the emergency room after she [facility] amb[facility] her [facility] and she lost her balance and fell hitting the left side of her forehead. Plan : - CT head w/o contrast CT head (-). On re-evaluation, patient is laying in bed in no acute distress, remains awake, alert, is happy and in no distress. VSS, repeat exam is unchanged , with no focal neurologic findings. Arrangements made for transport back to patient's NH. (Letitia Del Toro PA-C) - RAD Interpretation Narrative RAD Interpretations (Text): 06/18/17 17:28 CT HEAD w/o contrast : FINDINGS: HEMORRHAGE: No acute intracranial hemorrhage. . BRAIN: No mass effect or edema. There is mild to moderate diffuse age-appropriate atrophy. There is moderate periventricular white matter lucency with patchy and confluent deep and subcortical white matter lucency consistent with chronic microvascular ischemic change. There is no evidence of acute infarct. VENTRICLES: Unremarkable. No hydrocephalus. CALVARIUM: Unremarkable. PARANASAL SINUSES: Minimal chronic right maxillary sinusitis MASTOID AIR CELLS: Unremarkable as visualized. No inflammatory changes. OTHER FINDINGS: None. IMPRESSION: No intracranial mass, hemorrhage or evidence of acute infarct. Age related atrophy and chronic white matter ischemic change. (Letitia Del Toro PA-C) Radiology Orders: 06/18/17 16:06 HEAD W/O CONTRAST [CT] Stat - PA / COMPLIANCE SPECIALIST / Resident Statement MD/DO has reviewed & agrees with the documentation as recorded. <Letitia Del Toro PA-C - Last Filed: 06/18/17 17:28> - PA / COMPLIANCE SPECIALIST / Resident Statement /DO has reviewed & agrees with the documentation as recorded. <Marco Jacinto - Last Filed: 06/19/17 00:01> Disposition/Present on Arrival - Present on Arrival Any Indicators Present on Arrival: No History of DVT/PE: No History of Uncontrolled Diabetes: No Urinary Catheter: No History of Decub. Ulcer: No History Surgical Site Infection Following: None - Disposition Have Diagnosis and Disposition been Completed?: Yes Disposition Time: 17:30 Patient Plan: Discharge <Letitia Del Toro PA-C - Last Filed: 06/18/17 17:28> - Present on Arrival Any Indicators Present on Arrival: No History of DVT/PE: No History of Uncontrolled Diabetes: No Urinary Catheter: No History of Decub. Ulcer: No History Surgical Site Infection Following: None - Disposition Have Diagnosis and Disposition been Completed?: Yes Patient Plan: Discharge <Marco Jacinto - Last Filed: 06/19/17 00:01> - Disposition Diagnosis: Head injury Disposition: HOME/ ROUTINE Condition: STABLE Discharge Instructions (ExitCare): Head Injury (ED) Print Language: GREENLANDIC Referrals: [facility] Sergio Rejennifer, [Primary Care Provider] - Follow up with primary Forms: [employer] (Taiwanese)
--- NOTE | 2017-06-18 17:21 | CT ---
PROCEDURE: CT HEAD WITHOUT CONTRAST. HISTORY: trauma COMPARISON: 03/21/2017 TECHNIQUE: Axial computed tomography images were obtained through the head/brain without intravenous contrast. Radiation dose: Total exam DLP = 726.57 mGy-cm. This CT exam was performed using one or more of the following dose reduction techniques: Automated exposure control, adjustment of the mA and/or kV according to patient size, and/or use of iterative reconstruction technique. FINDINGS: HEMORRHAGE: No acute intracranial hemorrhage. . BRAIN: No mass effect or edema. There is mild to moderate diffuse age-appropriate atrophy. There is moderate periventricular white matter lucency with patchy and confluent deep and subcortical white matter lucency consistent with chronic microvascular ischemic change. There is no evidence of acute infarct. VENTRICLES: Unremarkable. No hydrocephalus. CALVARIUM: Unremarkable. PARANASAL SINUSES: Minimal chronic right maxillary sinusitis MASTOID AIR CELLS: Unremarkable as visualized. No inflammatory changes. OTHER FINDINGS: None. IMPRESSION: No intracranial mass, hemorrhage or evidence of acute infarct. Age related atrophy and chronic white matter ischemic change.
[2017-06-18 19:43] VITALS: BP 157/73; PULSE 70
== END 2017-06-18 19:43 | disposition home or self-care (01) ==
LOC: ED 15:31
DX: S09.90XA Unspecified injury of head, initial encounter (principal); W18.30XA Fall on same level, unspecified, initial encounter; Y92.129 Unspecified place in nursing home as the place of occurrence of the external cause

== ENCOUNTER 2017-12-09 20:59 | Emergency (ER) | payer MEDICAID, MEDICARE ==
[2017-12-09 21:00] VITALS: BMI 23.0
[2017-12-09 21:15] VITALS: RESP 17; O2SAT 100
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
--- NOTE | 2017-12-09 23:05 | CT ---
EXAM: CT Head Without Intravenous Contrast EXAM DATE/TIME: 12/09/2017 9:17 PM CLINICAL HISTORY: The patient age is 87 years old and is female; Signs and symptoms; Altered mental status/memory loss; Confusion or disorientation; Additional info: [facility] Facility exam id and description: Ct heads head w/o contrast TECHNIQUE: Axial computed tomography images of the head/brain without intravenous contrast. All CT scans at this facility use one or more dose reduction techniques, viz.: automated exposure control; ma/kV adjustment per patient size (including targeted exams where dose is matched to indication; i.e. head); or iterative reconstruction technique. Coronal and sagittal reformatted images were created and reviewed. COMPARISON: CT - HEAD W/O CONTRAST 2017-06-18 17:04 FINDINGS: Brain: There is moderate cerebral white matter hypodensity, likely representing small vessel ischemic disease in a patient this age. The acuity of the white matter disease is indeterminate. The white-pantoja differentiation is preserved demonstrating no acute territorial type infarct. There is a small calcification within the right globus pallidus, which is likely incidental. No acute intracranial hemorrhage is seen. Midline shift: There is no midline shift. Ventricles: There is moderate prominence of the ventricles and sulci, compatible with atrophy. Bones/joints: The calvarium demonstrates no evidence for a depressed fracture. Soft tissues: There is mild soft tissue swelling of the right frontal scalp. Vasculature: There is atherosclerotic calcification of the intracranial internal carotid arteries. Sinuses: A mucous retention cyst or polyp is visualized within the right maxillary sinus. Mastoid air cells: No mastoid effusion. IMPRESSION: 1. There is mild soft tissue swelling of the right frontal scalp. 2. No acute intracranial hemorrhage or acute territorial type infarct. 3. There is moderate cerebral white matter hypodensity, likely representing small vessel ischemic disease in a patient this age. 4. Moderate atrophy. 5. If further evaluation is clinically indicated, an MRI of the brain is recommended.
[2017-12-10 02:43] VITALS: BP 125/78; PULSE 69; TEMP 98
== END 2017-12-10 02:43 ==
LOC: ED 20:59
DX: S00.81XA Abrasion of other part of head, initial encounter (principal); W22.8XXA Striking against or struck by other objects, initial encounter; Y92.129 Unspecified place in nursing home as the place of occurrence of the external cause; G30.9 Alzheimer's disease, unspecified